=== PATIENT | male | born 1975 | race African-American/Black ===

== ENCOUNTER 2020-10-28 10:29 | Emergency (ER) | payer OTHER ==
[~2020-10-28] VITALS: Ht 170.2 cm; Wt 82.0 kg
[2020-10-28] MEDS ORDERED: IBUPROFEN 600MG TABLET PO ONE (10:45)
[2020-10-28 12:19] VITALS: BP 142/100
== END 2020-10-28 12:20 | disposition home or self-care (01) ==
LOC: ER 10:44
DX: S80.211A Abrasion, right knee, initial encounter (principal); X58.XXXA Exposure to other specified factors, initial encounter; Y93.89 Activity, other specified; Y92.89 Other specified places as the place of occurrence of the external cause; Y99.8 Other external cause status
CPT/HCPCS: 99282

== ENCOUNTER 2020-10-29 00:38 | Emergency (ER) | payer SELFPAY ==
[~2020-10-29] VITALS: Ht 170.2 cm; Wt 79.0 kg
[2020-10-29] MEDS ORDERED: ACETAMINOPHEN 325MG TABLET PO STA (01:02)
[2020-10-29] MEDS ORDERED: BACITRACIN ZINC OINT UDPKT TOP ONE (01:15)
[2020-10-29 03:20] VITALS: BP 140/97
== END 2020-10-29 03:22 | disposition home or self-care (01) ==
LOC: ER 00:38
DX: S20.214A Contusion of middle front wall of thorax, initial encounter (principal); S80.211A Abrasion, right knee, initial encounter; M54.2 Cervicalgia; W18.30XA Fall on same level, unspecified, initial encounter; Y93.89 Activity, other specified; Y92.89 Other specified places as the place of occurrence of the external cause; Y99.8 Other external cause status
CPT/HCPCS: 71045; 73562; 93005; 99284

== ENCOUNTER 2020-11-05 06:20 | Emergency (ER) | payer MEDICAID ==
[~2020-11-05] VITALS: Ht 172.7 cm; Wt 80.0 kg
[2020-11-05] MEDS ORDERED: KETOROLAC 30MG/ML VIAL IV STA (07:01)
[2020-11-05 07:20] LABS: BASOPHILS % 0.7 % (0.0-2.0); EOSINOPHILS % 7.3 % (0.0-5.0); HEMATOCRIT. 43.6 % (42.0-52.0); LYMPHOCYTES % 38.7 % (20.0-50.0); MEAN CORPUSCULAR HEMOGLOBIN 30.6 pg (28.0-32.0); MEAN CORPUSCULAR VOLUME 89.2 fL (80.0-94.0); MEAN PLATELET VOLUME 8.8 fl (7.4-10.4); MONOCYTES % 11.7 % (2.0-8.0); NEUTROPHILS % 41.6 % (40.0-76.0); PLATELET 199 x1000/uL (130-400); RED BLOOD CELL COUNT 4.89 mill/uL (4.7-6.1)
[2020-11-05 07:24] LABS: CHLORIDE 106 mEq/L (98-107)
[2020-11-05 08:17] VITALS: BP 137/97
== END 2020-11-05 10:15 | disposition home or self-care (01) ==
LOC: ER 06:20
DX: S06.0X0A Concussion without loss of consciousness, initial encounter (principal); X58.XXXA Exposure to other specified factors, initial encounter; Y93.89 Activity, other specified; Y92.89 Other specified places as the place of occurrence of the external cause; Y99.8 Other external cause status; M54.2 Cervicalgia
CPT/HCPCS: 36415; 71045; 80048; 85025; 93005; 96374; 99285; J1885